=== PATIENT | male | born 1945 ===

== ENCOUNTER → 2020-02-10 14:48 | Outpatient (CLI) | payer OTHER, SELFPAY ==
[2020-02-12 06:05] LABS: COVID19 Sendout Not Detected (Not Detect)
== END ==
PROVIDERS: PCP Internal Medicine; Visit Provider Physician Assistant
DX: Z01.812 Encounter for preprocedural laboratory examination (principal)
CPT/HCPCS: 87635

== ENCOUNTER 2020-02-13 09:03 | Day surgery (SDC) | payer OTHER, SELFPAY ==
[2020-02-13] VITALS (11 sets, daily range): BP systolic 82–125; BP diastolic 44–80; PULSE 64–89; RESP 10–98; TEMP 36.1–36.3; O2SAT 10–97; BMI 24.0
--- NOTE | 2020-02-13 | PATH_ITS ---
[facility] Accession Number: [id number] . 01 Material submitted: . PART A: gastrointestinal site - GASTRIC ULCER PART B: esophagus - RANDOM ESOPHAGUS PART C: body - POLYP AT 25CM PART D: body - POLYP AT 40CM PART E: body - POLYPS AT 60CM X3 PART F: body - POLYPS AT 80CM . 02 Diagnosis: A. Stomach, Ulcer, Biopsy: Acute erosive gastritis with reactive gastropathy. No evidence of Helicobacter on H/E stain. Negative for intestinal metaplasia. Negative for dysplasia and malignancy. . B. Esophagus, Random Biopsies: Squamous epithelium with active inflammation, yeast, and invasive pseudohyphae, consistent with Jagruti esophagitis. Intraepithelial eosinophils are not increased. Negative for dysplasia and malignancy. . C. Polyp at 25 cm, Biopsy: Hyperplastic polyp. . D. Colon, Polyp at 40 cm, Biopsy: Hyperplastic polyp. . E. Colon, Polyps at 60 cm x3, Biopsies: Tubular adenoma in four of five fragments. . F. Colon, Polyps at 80 cm, Biopsies: Tubular adenomas. [facility] 02/16/2020 1442 Local . 02 Comment: Part A: An immunohistochemical stain will be performed to evaluate for Helicobacter organisms, and the results reported as an addendum. . 02 Electronically signed: . Dalia Conde MD, Pathologist NPI- [id number] . 01 Gross description: . A. Received in formalin, labeled gastric, are multiple cabral-white fragments of soft tissue measuring 0.6 x 0.5 x 0.2 cm in aggregate. The specimen is entirely submitted in cassette A1. B. Received in formalin, labeled random esophagus, and consists of three cabral-white fragments of soft tissue measuring 0.5 x 0.4 x 0.2 cm in aggregate. The specimen is entirely submitted in cassette B1. C. Received in formalin, labeled polyp at 25 cm, and consists of two cabral-pink fragments of soft tissue measuring 0.6 x 0.5 x 0.3 cm in aggregate. The specimen is entirely submitted in cassette C1. D. Received in formalin, labeled polyp at 40 cm, and consists of two cabral fragments of soft tissue measuring 0.3 x 0.2 x 0.2 cm in aggregate. The specimen is entirely submitted in cassette D1. E. Received in formalin, labeled polyps at 60 cm, and consists of multiple cabral-pink fragments of soft tissue measuring 1.0 x0.8 x 0.3 cm in aggregate. The specimen is entirely submitted in cassette E1. F. Received in formalin, labeled polyp at 80 cm, and consists of three cabral fragments of soft tissue measuring 0.6 x 0.5 x 0.2 cm in aggregate. The specimen is entirely submitted in cassette F1. ([id number]) /MRV 02/16/2020 [facility]8 Local . 02 Pathologist provided ICD-10: B37.81, K25.9, D12.6 . 02 CPT . 816778, 530426, 286032, 587051, [id number], [id number], [id number] Performed at: 01 [facility] [address] [id number] MD Lang Camacho MD Phone: [phone] Performed at: 02 [facility] [address] [place] [id number] MD Dalia Conde MD Phone: [phone]
[2020-02-13] MEDS: LACTATED RINGERS 1,000 ML 200 ML IV (09:56)
--- NOTE | 2020-02-13 11:01 | PM.PREOP ---
Pre-operative Note COVID-19 COVID-19 status: Negative Result date/Date tested (Pos, Neg/Pending): 02/10/20 Interval Note History & Physical reviewed/Exam performed by Physician: Yes Changes to H&P: No ASA Class (for procedural sedation): II
[2020-02-13] MEDS: LIDOCAINE 4% SOLN 50 ML 20 ML TOP (11:07)
[2020-02-13] MEDS: MIDAZOLAM 5 MG/5 ML VIAL IV (11:34)
[2020-02-13] MEDS: fentaNYL 250 MCG/5 ML INJ IV (11:43)
--- NOTE | 2020-02-13 12:01 | PM.OP.ENDO ---
Operative Date/Time/Diagnoses Date of procedure: 02/13/20 Time of procedure: 12:01 Pre-op diagnosis: Iron deficient anemia Post-op diagnosis: same (Superficial ulceration in the antrum and pyloric channel. Small polyps in the colon. Sigmoid diverticulosis.) Procedure & Clinicians Study performed: EGD with biopsy cold. Colonoscopy with cold biopsy Same procedure as scheduled: Yes Procedure Notes SCOAP/Timeout: Performed Procedure in detail: The patient had topical anesthetic applied to oropharynx. She was placed in left lateral decubitus position and underwent IV sedation directed by the surgeon consisting of fentanyl and Versed. A bite block was inserted and the scope was advanced through it into the esophagus. The esophagus was quite pale and there appeared to be a whitish irregular film on its surface. Was not clear if this was something laying on the surface or was the surface. It did not irrigate off. Then in places it seemed to scrape off with the scope. GE junction was noted at 41 cm from the incisors. The stomach insufflated well. The patient was noted to have raised reddened areas in his antrum and in the pyloric channel there was a markedly reddened fold. The pyloric channel itself was patent. The duodenal bulb was remarkable for prominent glands but no ulceration. The remainder of the duodenum to the 4th part was unremarkable. The scope was brought back into the stomach and retroflexed. The proximal stomach normal in appearance. There was no evidence of a hiatal hernia.. The scope was straightened and biopsies taken to the reddened areas in the antrum and pyloric channel. The scope was then brought out through the esophagus again. Biopsies were taken of the pale areas of the esophagus which were per principally in the proximal half. The scope was removed and the patient tolerated the procedure well. The patient was left in the left lateral decubitus position and underwent IV sedation directed by the surgeon consisting of additional fentanyl and Versed. Digital exam was remarkable for what felt like an absent prostate. The scope was inserted and advanced through the rectum into the sigmoid, descending, transverse, and ascending colon.[]. The cecum was reached identified by the ileocecal valve and the appendiceal opening. I removed [address] in. These were located at 40 and 80 cm. The scope was gradually brought out. Additional Polyps were found at 60 cm(3 small lesions) and at 25 cm(2 small lesions). The scope ultimately was retroflexed in the rectum. The appearance was normal. The scope was removed and the patient tolerated the procedure well. The prep was good. Scope withdrawal time: 6 minutes(13 total) Sedation minutes: 41 Findings: diverticulosis (Sigmoid), gastric ulcer (Superficial) and polyp (Multiple small lesions) Specimen(s): other (Gastric biopsies and polyps) Complications: none Post-procedure Recommendations: Colonscopy in 5 years (If in good health) and Start medication(s) (Omeprazole) Plan for aftercare: Follow-up with primary care doctor Follow up: as needed Disposition: PACU
== END 2020-02-13 14:15 | disposition home or self-care (01) ==
PROVIDERS: PCP Internal Medicine; Referring Provider Internal Medicine; Visit Provider Specialist
PROC: 0DJ08ZZ Inspection of Upper Intestinal Tract, Via Natural or Artificial Opening Endoscopic (ICD-10-PCS; CPT 43235; principal; 2020-02-13 10:00)
PROC: 0DJD8ZZ Inspection of Lower Intestinal Tract, Via Natural or Artificial Opening Endoscopic (ICD-10-PCS; CPT 45378; 2020-02-13 10:00)
DX: K29.00 Acute gastritis without bleeding (principal); D50.9 Iron deficiency anemia, unspecified; R63.4 Abnormal weight loss; K57.30 Diverticulosis of large intestine without perforation or abscess without bleeding; B37.81 Candidal esophagitis; D12.6 Benign neoplasm of colon, unspecified
CPT/HCPCS: 45380; 43239; 99152; 99153; J2250; J3010